=== PATIENT | male | born 1960 | race Caucasian/White ===

== ENCOUNTER 2023-04-19 18:29 | Emergency (ER) | payer OTHER ==
[~2023-04-19] VITALS: Ht 177.8 cm; Wt 83.5 kg
[2023-04-19] MEDS ORDERED: ANTIVERT25 M2 PO (18:44)
== END 2023-04-19 19:26 | disposition home or self-care (01) ==
LOC: ER 18:29
DX: H81.12 Benign paroxysmal vertigo, left ear (principal); Z88.6 Allergy status to analgesic agent